=== PATIENT | female | born 1995 | race Caucasian/White ===

== ENCOUNTER 2017-08-19 06:14 | Day surgery (SDC) | payer MEDICAID ==
[~2017-08-19] VITALS: Ht 175.3 cm; Wt 59.4 kg
--- NOTE | ~2017-08-19 | OP ---
PATIENT NAME: AMILCAR CAM MEDICAL RECORD: [id number] :97 LOCATION:[facility] ADMISSION DATE: SURGEON: MP HARTMAN MD DATE OF OPERATION: 08/19/2017 PREOPERATIVE DIAGNOSES: 1. Right axillary lymphadenopathy. 2. Multiple sclerosis. POSTOPERATIVE DIAGNOSES: 1. Right axillary lymphadenopathy. 2. Multiple sclerosis. PROCEDURE: Excisional biopsy of right axillary lymph node. SURGEON: Mp Hartman MD REPORT OF PROCEDURE: The patient's right axilla was prepped and draped in sterile fashion. A longitudinal incision was made on the anterior aspect of the patient's axilla. Electrocautery was used to dissect through subcutaneous tissues. We encountered a large firm axillary lymph node. This extended deep into the patient's axilla. I had difficulty determining if this is all 1 lymph node or just a conglomerate of all the lymph nodes that were present. I went ahead and took a large portion of this and large collection of lymph nodes and sent it off for permanent specimen. I could feel that this lymph node appeared to be connected to a palpable cord, which was present on the upper medial arm on the right side. I did not see any evidence or any purulence during the surgery. The wound was then irrigated out with normal saline and any bleeding was treated with electrocautery. The subcutaneous tissues were reapproximated with interrupted 3-0 Vicryl and infused with 10 mL of 0.25% Marcaine with epinephrine. The skin incision was closed with subcutaneous running 5-0 Monocryl and dressed appropriately. COMPLICATIONS: None. CONDITION: Stable. ANESTHESIA: General endotracheal and local. BLOOD LOSS: Minimal. TRANSINT:[id number] Voice Confirmation ID: [id number] DOCUMENT ID: [id number] MP HARTMAN MD at 1144 CC: TABATHA PINEDA [id number] DICTATION DATE: 08/19/17 1013 [employer] FLOOR MANAGER: 08/19/17 1119 [facility] 08/19/[address] [id number]
[2017-08-19 06:52] VITALS: BP 97/47; Ht 175.3 cm; Wt 59.4 kg
[2017-08-19 07:02] LABS: HEMATOCRIT 40.6 % (36.0-48.0); HEMOGLOBIN 13.7 g/dL (12-16); MCH 29.4 pg (26.0-34.0); MCHC 33.7 g/dL (31.0-37.0); MCV 87.1 fL (80.0-100.0); MEAN PLATELET VOLUME 9.8 fL (7.4-10.4); PLATELET COUNT 209 10x3/uL (130-400); RBC 4.66 10x6/uL (4.00-5.40); RDW 13.5 % (11.5-14.5); WBC 6.6 10x3/uL (4.8-10.8)
[2017-08-19 07:10] LABS: HCG URINE NEGATIVE (NEGATIVE)
[2017-08-19 07:11] LABS: CALC OSMOLALITY 277 mosm/kg (275-300); CALCIUM 8.7 mg/dL (8.5-10.1); CARBON DIOXIDE 24.8 mmol/L (21.0-32.0); CHLORIDE - SERUM 104 mmol/L (98-107); CREATININE - SERUM 0.8 mg/dL (0.6-1.3); GLUCOSE 88 mg/dL (74-106); POTASSIUM - SERUM 3.9 mmol/L (3.5-5.1); SODIUM 141 mmol/L (136-145); UREA NITROGEN 8 mg/dL (7-18); eGFR NON AFRICAN AMERICAN > 90 mL/min (90-120)
[2017-08-19 08:46] LABS: EOSINOPHILS 1 % (0-7); LYMPHOCYTES 53 % (15-50); MONOCYTES 7 % (2-11); NEUTROPHILS 37 % (40-80); PLATELET ESTIMATE NORMAL
[2017-08-19] MEDS ORDERED: HYDROCODON-ACE1 EAC7 PO (10:08)
== END 2017-08-19 11:39 | disposition home or self-care (01) ==
LOC: D.OPS 06:14 → D.PAN 09:00 → D.OPS 09:00
PROVIDERS: Surgery
DX: R59.0 Localized enlarged lymph nodes (principal); G35 Multiple sclerosis; Z01.812 Encounter for preprocedural laboratory examination

== ENCOUNTER 2017-09-04 19:47 | Emergency (ER) | payer MEDICAID ==
[2017-08-19 06:52] VITALS: BMI 19.3
[~2017-09-04 19:47] MED LIST: HYDROCODON-ACE1 EAC7 PO
== END 2017-09-04 21:53 | disposition home or self-care (01) ==
LOC: D.ER 19:47
DX: I88.8 Other nonspecific lymphadenitis (principal); F17.200 Nicotine dependence, unspecified, uncomplicated

== ENCOUNTER 2017-09-07 11:55 | Emergency (ER) | payer MEDICAID ==
[2017-08-19 06:52] VITALS: BMI 19.3
[2017-09-07 12:22] LABS: BASOPHILS 0.9 % (0-2); HEMATOCRIT 40.3 % (36.0-48.0); HEMOGLOBIN 13.7 g/dL (12-16); MCH 30.1 pg (26.0-34.0); MCV 88.6 fL (80.0-100.0); MEAN PLATELET VOLUME 9.6 fL (7.4-10.4); MONOCYTES 7.5 % (2-11); NEUTROPHILS 27.6 % (40-80); PLATELET COUNT 209 10x3/uL (130-400); RBC 4.55 10x6/uL (4.00-5.40); RDW 13.4 % (11.5-14.5); WBC 4.6 10x3/uL (4.8-10.8)
[2017-09-07 12:26] LABS: UDS - AMPHET NEGATIVE QUAL (NEGATIVE); UDS - BARB NEGATIVE QUAL (NEGATIVE); UDS - BENZO POSITIVE QUAL (NEGATIVE); UDS - COCAINE NEGATIVE QUAL (NEGATIVE); UDS - OPIATE POSITIVE QUAL (NEGATIVE); UDS - PCP NEGATIVE QUAL (NEGATIVE); UDS - THC POSITIVE QUAL (NEGATIVE)
[2017-09-07 12:29] LABS: APPEARANCE CLEAR (CLEAR); BILIRUBIN NEGATIVE (NEGATIVE); COLOR YELLOW (YELLOW); GLUCOSE NEGATIVE (NEGATIVE); KETONE NEGATIVE (NEGATIVE); NITRITE NEGATIVE (NEGATIVE); PROTEIN NEGATIVE (NEGATIVE); UROBILINOGEN NORMAL (NORMAL)
[2017-09-07 12:32] LABS: BACTERIA FEW /hpf (NONE SEEN); EPITHELIAL CELLS 0-5 /hpf (0-5); RED CELLS - URINE 0-5 /hpf (0-5); WHITE CELLS - URINE 0-5 /hpf (0-5)
[2017-09-07 12:38] LABS: HCG SERUM NEGATIVE (NEGATIVE)
[2017-09-07 12:40] LABS: ACETAMINOPHEN 4.4 ug/mL (10.0-30.0); ALBUMIN 4.2 g/dL (3.4-5.0); ALKALINE PHOSPHATASE 75 U/L (46-116); ALT (SGPT) 22 U/L (10-68); BILIRUBIN - TOTAL 0.84 mg/dL (0.2-1.3); CALC OSMOLALITY 277 mosm/kg (275-300); CALCIUM 8.6 mg/dL (8.5-10.1); CARBON DIOXIDE 26.5 mmol/L (21.0-32.0); CHLORIDE - SERUM 105 mmol/L (98-107); CREATININE - SERUM 0.8 mg/dL (0.6-1.3); GLUCOSE 87 mg/dL (74-106); POTASSIUM - SERUM 3.6 mmol/L (3.5-5.1); PROTEIN - SERUM 7.9 g/dL (6.4-8.2); SODIUM 141 mmol/L (136-145); UREA NITROGEN 8 mg/dL (7-18); eGFR NON AFRICAN AMERICAN > 90 mL/min (90-120)
== END 2017-09-07 15:42 | disposition short-term general hospital (02) ==
LOC: D.ER 11:55
PROVIDERS: Emergency Medicine
DX: F12.10 Cannabis abuse, uncomplicated (principal); R45.851 Suicidal ideations; T14.91XA Suicide attempt, initial encounter; T40.2X2A Poisoning by other opioids, intentional self-harm, initial encounter; Y92.019 Unspecified place in single-family (private) house as the place of occurrence of the external cause; Y93.89 Activity, other specified; F17.200 Nicotine dependence, unspecified, uncomplicated